=== PATIENT | male | born 1940 | race Caucasian/White ===

== ENCOUNTER 2017-12-02 09:15 | Inpatient (IN) | payer OTHER ==
[~2017-12-02] VITALS: Ht 177.8 cm; Wt 88.0 kg
[2017-12-02] MEDS ORDERED: RANITIDINE HCL150 M1 PO (11:10)
[2017-12-02] MEDS ORDERED: AVAPRO300 MG PO (11:11)
[2017-12-02] MEDS ORDERED: PRADAXA150 MG PO (11:11)
[2017-12-02] MEDS ORDERED: JARDIANCE25 MG PO (11:11)
[2017-12-02] MEDS ORDERED: CALAN SR120 MG PO (11:12)
[2017-12-02] MEDS ORDERED: NIFE60TA3 PO (11:12)
[2017-12-02] MEDS ORDERED: VICTOZA 2-0.6 MG/0.1 (11:13)
[2017-12-02] MEDS ORDERED: GABAPENTIN600 MG PO (11:13)
== END 2017-12-14 18:51 | disposition home or self-care (01) | DRG 330 ==
LOC: SURH 12-08 05:30 → O/R 12-08 05:30 → SURH 12-08 05:30 → MEDI 12-08 10:54 → SURH 12-08 13:50
PROVIDERS: Colon & Rectal Surgery
PROC: 07TC4ZZ Resection of Pelvis Lymphatic, Percutaneous Endoscopic Approach (ICD-10-PCS; 2017-12-08)
PROC: 0DBU4ZZ Excision of Omentum, Percutaneous Endoscopic Approach (ICD-10-PCS; 2017-12-08)
PROC: 4A033R1 Measurement of Arterial Saturation, Peripheral, Percutaneous Approach (ICD-10-PCS; 2017-12-08)
PROC: 3E0F7GC Introduction of Other Therapeutic Substance into Respiratory Tract, Via Natural or Artificial Opening (ICD-10-PCS; 2017-12-08)
PROC: 4A12X4Z Monitoring of Cardiac Electrical Activity, External Approach (ICD-10-PCS; 2017-12-08)
PROC: 0DTF4ZZ Resection of Right Large Intestine, Percutaneous Endoscopic Approach (ICD-10-PCS; principal; 2017-12-08 07:00)
DX: C18.0 Malignant neoplasm of cecum (principal); C77.2 Secondary and unspecified malignant neoplasm of intra-abdominal lymph nodes; T81.4XXA Infection following a procedure, initial encounter; L03.311 Cellulitis of abdominal wall; K56.0 Paralytic ileus; K91.89 Other postprocedural complications and disorders of digestive system; E11.9 Type 2 diabetes mellitus without complications; I48.0 Paroxysmal atrial fibrillation; J45.20 Mild intermittent asthma, uncomplicated; G47.33 Obstructive sleep apnea (adult) (pediatric); J44.9 Chronic obstructive pulmonary disease, unspecified